=== PATIENT | female | born 1950 | race American Indian/Alaskan Native ===

== ENCOUNTER 2019-07-17 13:08 | Emergency (ER) | payer BC ==
[2019-07-17 13:46] VITALS: BP 151/67
--- NOTE | 2019-07-17 14:28 | Emergency Department Report ---
ED General Adult HPI - General Chief complaint: High BP Stated complaint: HYPERTENSION Time Seen by Provider: 07/17/19 14:04 Source: patient, EMS Mode of arrival: Stretcher Limitations: No Limitations - History of Present Illness Initial comments: 68-year-old female with a known history of hypertension since her emergency department complaining of a hypertensive flareup. Initially was home to begin having some mild headache abdominal deficits in the she took a a a Good[employer] headache powders was helps resolve her symptoms. 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 Upon arrival her symptoms have resolved and a blood pressure poorly had improved to 166 over the 170s. States that she has no symptoms no chest pain or headache no blurred vision and is requesting to be discharged home.he has recently adjusted to time or her medication regimen was maybe corporate of her symptoms were typical which had been becoming elevated. She reports no current headache or dizziness. No nausea or vomiting. Radiation: non-radiation Severity scale (0 -10): 5 Quality: dull Consistency: constant Improves with: none Worsens with: none Associated Symptoms: denies: chest pain, diaphoresis, fever/chills, loss of appetite, malaise, nausea/vomiting ED Review of Systems ROS: Stated complaint: HYPERTENSION Other details as noted in HPI Comment: All other systems reviewed and negative ED Past Medical Hx - Past Medical History Previous Medical History?: Yes Hx Hypertension: Yes - Social History Smoking Status: Never Smoker Substance Use Type: None ED Physical Exam - General Limitations: No Limitations General appearance: alert, in no apparent distress - Head Head exam: Present: atraumatic, normocephalic - Eye Eye exam: Present: normal appearance, PERRL, EOMI Pupils: Present: normal accommodation - ENT ENT exam: Present: normal orophraynx, mucous membranes moist - Neck Neck exam: Present: normal inspection - Respiratory Respiratory exam: Present: normal lung sounds bilaterally. Absent: respiratory distress - Cardiovascular Cardiovascular Exam: Present: regular rate, normal rhythm. Absent: systolic murmur, diastolic murmur, rubs, gallop - GI/Abdominal GI/Abdominal exam: Present: soft, normal bowel sounds - Extremities Exam Extremities exam: Present: normal inspection - Back Exam Back exam: Present: normal inspection - Neurological Exam Neurological exam: Present: alert, oriented X3 - Psychiatric Psychiatric exam: Present: normal affect, normal mood - Skin Skin exam: Present: warm, dry, intact, normal color. Absent: rash ED Course Vital Signs 07/17/19 07/17/19 13:17 13:33 Temperature 98.2 F 98.2 F Pulse Rate 52 L 49 L Respiratory 16 16 Rate Blood Pressure 185/75 Blood Pressure 185/75 151/67 [Left] O2 Sat by Pulse 99 99 Oximetry ED Medical Decision Making - Medical Decision Making 68-year-old female with a history of hypertension blood pressure was within her relatively normal range and a symptomatically current. She is on Lipitor in the emergency department under her own power with no elevation in her blood pressure during the examination process no any's symptoms began to arise. She feels like she is back to baseline and is requesting to be discharged home. she denies any chest pain, loss of vision, loss of consciousness, anemia, palpitations, hemoptysis or abdominal pain. Critical care attestation.: If time is entered above; I have spent that time in minutes in the direct care of this critically ill patient, excluding procedure time. ED Disposition Clinical Impression: Hypertension Disposition: DC-01 TO HOME OR SELFCARE Is pt being admited?: No Does the pt Need Aspirin: No Condition: Stable Instructions: Hypertension (ED), DASH Eating Plan (ED), Low Sodium Diet (ED) Referrals: PRIMARY CARE, [Referring] - 3-5 Days
== END 2019-07-17 14:52 | disposition home or self-care (01) ==
LOC: ED 13:08
DX: I10 Essential (primary) hypertension (principal)

== ENCOUNTER 2019-07-20 10:19 | Emergency (ER) | payer BC ==
[2019-07-20 10:54] VITALS: BP 175/70
--- NOTE | 2019-07-20 11:58 | Emergency Department Report ---
ED General Adult HPI - General Chief complaint: Headache Stated complaint: HTN/NAUSEA/HEADACHE Time Seen by Provider: 07/20/19 11:26 Source: patient Mode of arrival: Ambulatory Limitations: No Limitations - History of Present Illness Initial comments: Mrs. Ferrer is a 68 yo female with hx of HTN and thyroid dz who presents with headache, palpitations and generalized malaise for several days. Headache frontal global, treated adequately with tylenol and Goody's powder. More frequent and persistent beyond normal. Elevated blood pressure: takes bystolic and edarbyclor, last medication change 9 month ago, blood pressure has been controlled, but recent high readings including 200 mm HG including ED visit here on Saturday 3 days ago, no changes in diet Has had intermittent palpatations for the past 2-3 weeks, no chest pain, no shortness of breath. Has an appointment with PCP Dr. Nunn next week -: Gradual, days(s) (several days) Location: head, chest Severity scale (0 -10): 6 Quality: aching Consistency: constant Improves with: medication Associated Symptoms: headaches, malaise, other (palpitations) - Related Data Allergies Allergy/AdvReac Type Severity Reaction Status Date / Time erythromycin base Allergy Unknown Verified 07/20/19 10:55 [From E-Mycin] hydrocortisone Allergy Unknown Verified 07/20/19 10:55 [From Hydrocortone] neomycin Allergy Unknown Verified 07/20/19 10:55 neomy Allergy Unknown Uncoded 07/20/19 10:55 ED Review of Systems ROS: Stated complaint: HTN/NAUSEA/HEADACHE Other details as noted in HPI Comment: All other systems reviewed and negative Constitutional: malaise Cardiovascular: palpitations. denies: chest pain Gastrointestinal: denies: abdominal pain, nausea, vomiting Neurological: headache. denies: numbness, paresthesias ED Past Medical Hx - Past Medical History Previous Medical History?: Yes Hx Hypertension: Yes Additional medical history: hypothyroidism - Surgical History Past Surgical History?: Yes Additional Surgical History: thyroidectomy, lumpectomy,right knee,partial hysterectomy - Social History Smoking Status: Never Smoker Substance Use Type: None Other Social History: works in an office setting for [employer] ED Physical Exam - General Limitations: No Limitations General appearance: alert, in no apparent distress, other (appears well comfortable briskgait) - Head Head exam: Present: atraumatic, normocephalic - Eye Eye exam: Present: normal appearance - ENT ENT exam: Present: mucous membranes moist - Neck Neck exam: Present: normal inspection - Respiratory Respiratory exam: Present: normal lung sounds bilaterally. Absent: respiratory distress, wheezes, rales - Cardiovascular Cardiovascular Exam: Present: regular rate, normal rhythm, normal heart sounds. Absent: systolic murmur, diastolic murmur, rubs, gallop - GI/Abdominal GI/Abdominal exam: Present: soft, normal bowel sounds. Absent: distended, tenderness, guarding, rebound - Extremities Exam Extremities exam: Present: normal inspection - Back Exam Back exam: Present: normal inspection - Neurological Exam Neurological exam: Present: alert, oriented X3, normal gait - Psychiatric Psychiatric exam: Present: normal affect, normal mood - Skin Skin exam: Present: warm, dry, intact, normal color. Absent: rash ED Course Vital Signs 07/20/19 07/20/19 10:47 11:09 Temperature 98.9 F Pulse Rate 56 L Respiratory 18 16 Rate Blood Pressure 175/70 O2 Sat by Pulse 100 Oximetry ED Medical Decision Making - Lab Data Result diagrams: 07/20/19 11:54 07/20/19 11:54 Laboratory Results - last 24 hr 07/20/19 07/20/19 07/20/19 11:54 11:54 11:54 WBC 4.6 RBC 3.77 Hgb 12.3 Hct 36.2 MCV 96 MCH 33 H MCHC 34 RDW 13.3 Plt Count 226 Lymph % (Auto) 34.2 [place] % (Auto) 8.2 H Eos % (Auto) 0.8 Baso % (Auto) 0.7 Lymph # 1.6 [place] # 0.4 Eos # 0.0 Baso # 0.0 Seg Neutrophils % 56.1 Seg Neutrophils # 2.6 Sodium 145 Potassium 3.9 Chloride 103.1 Carbon Dioxide 28 Anion Gap 18 BUN 18 H Creatinine 1.2 Estimated GFR 54 BUN/Creatinine Ratio 15 Glucose 169 H Calcium 8.7 Troponin T < 0.010 TSH 0.571 - EKG Data 07/20/19 12:21 EKG obtained 1208 Sinus bradycardia rate 50 beats a minute normal axis normal intervals no ST-T signs of ischemia inferior Q waves present - Medical Decision Making 1. headache, tension headache, no indication of ICH, glaucoma, meningitis, CVA, temporal arteritis, will continue OTC treatment 2. Hypertensive urgency, normal kidney function, no indication of end organ damage 3. palpitations DDX: PVCs, atrial fibrillation, normal EKG in ED, Multiple symptoms presents without emergent cause, strongly recommended evaluation by PCP CBC BMP troponin and TSH all within normal limits. Critical care attestation.: If time is entered above; I have spent that time in minutes in the direct care of this critically ill patient, excluding procedure time. ED Disposition Clinical Impression: Tension headache, Palpitation, Hypertensive urgency Disposition: TO HOME OR SELFCARE Is pt being admited?: No Does the pt Need Aspirin: No Condition: Stable Instructions: Hypertension (ED), Tension Headache (ED), Palpitations (ED) Referrals: PRIMARY CARE, [Primary Care Provider] - 3-5 Days Forms: Work/School Release Form(ED)
[2019-07-20 12:18] LABS: Basophils % (Auto) 0.7 % (0.0-1.8); Eosinophils % (Auto) 0.8 % (0.0-4.3); Hematocrit 36.2 % (30.3-42.9); Hemoglobin 12.3 gm/dl (10.1-14.3); Lymphocytes # (Auto) 1.6 K/mm3 (1.2-5.4); Lymphocytes % (Auto) 34.2 % (13.4-35.0); Mean Corpuscular HGB Conc 34 % (30-34); Mean Corpuscular Volume 96 fl (79-97); Monocytes # (Auto) 0.4 K/mm3 (0.0-0.8); Monocytes % (Auto) 8.2 % (0.0-7.3); Platelet Count 226 K/mm3 (140-440); Red Blood Count 3.77 M/mm3 (3.65-5.03); Red Cell Distribution Width 13.3 % (13.2-15.2)
[2019-07-20 12:39] LABS: BUN/Creatinine Ratio 15; Blood Urea Nitrogen 18 mg/dL (7-17); Calcium 8.7 mg/dL (8.4-10.2); Hemolysis Index 16
== END 2019-07-20 13:30 | disposition home or self-care (01) ==
LOC: ED 10:19
DX: G44.209 Tension-type headache, unspecified, not intractable (principal); I16.0 Hypertensive urgency; I10 Essential (primary) hypertension; E03.9 Hypothyroidism, unspecified; Z90.89 Acquired absence of other organs; Z90.710 Acquired absence of both cervix and uterus; Z98.890 Other specified postprocedural states; Z91.041 Radiographic dye allergy status; Z88.5 Allergy status to narcotic agent; Z88.1 Allergy status to other antibiotic agents; Z79.899 Other long term (current) drug therapy
CPT/HCPCS: 36415; 80048; 84443; 84484; 85025; 93005; 93010